=== PATIENT | male | born 1945 | race Caucasian/White ===

== ENCOUNTER 2016-11-19 06:42 | Inpatient (IN) | payer MEDICARE ==
[~2016-11-19] VITALS: Ht 188 cm; Wt 128.1 kg
--- NOTE | ~2016-11-19 | HP ---
[facility] AGE[facility] 71 Y [address] ROOM: [place] [address] LOCATION: GPCU ADMIT DATE: 11/19/2016 History & Physical DISCHARGE DATE: FAMILY PHYSICIAN: PHYSICIAN, NO ATTENDING PHYSICIAN: JEAN-PIERRE DOSHI DATE OF SERVICE: CHIEF COMPLAINT: Burning on urination and difficulty urinating. HISTORY OF PRESENT ILLNESS: A 71-year-old gentleman with a past medical history of extensive coronary artery disease, also history of paroxysmal atrial fibrillation on long-term anticoagulation without checking the INR at home, also have implantable cardiac defibrillator, secondary to ventricular tachycardia presented to the emergency department with chief complaint of burning on urination, increased frequency, difficulty initiating, and pain while urinating. The onset of symptoms have been 2 days ago, progressive in nature, and was associated with seen blood in the urine. He denied any abdominal pain, associated fever, chills, nausea, vomiting, chest pain, shortness of breath, or palpitations. On further inquiry, he denied PND, orthopnea, or leg swelling. He has not checked his INR level for over three months now. REVIEW OF SYSTEMS: All other systems reviewed were negative except what is mentioned in the HPI. PAST MEDICAL HISTORY: Significant for hypertension, coronary artery disease, paroxysmal atrial fibrillation, ventricular tachycardia status post ICD, hypothyroidism, morbid obesity, and obstructive sleep apnea. MEDICATIONS: Being reconciled right now. ALLERGIES: THE PATIENT IS ALLERGIC TO BACTRIM. FAMILY HISTORY: Family history is positive for premature coronary artery disease in both mom and dad. SOCIAL HISTORY: The patient quit smoking in 1993. Previously, he smoked three packs a day for 27 years. PATIENT'S NAME: [facility] AGE: 71 Y [address] ROOM: [address] [address] LOCATION: GPCU ADMIT DATE: 11/19/2016 History & Physical DISCHARGE DATE: FAMILY PHYSICIAN: PHYSICIAN, NO ATTENDING PHYSICIAN: JEAN-PIERRE DOSHI PHYSICAL EXAMINATION: VITAL SIGNS: Blood pressure 150/70, respiratory rate is 16, heart rate of 84, afebrile. GENERAL: In mild acute distress due to pain. HEENT: Head: Atraumatic and normocephalic. Eyes: Left eye showed conjunctiva hemorrhage. Oropharynx: Dry mucous membranes. CARDIOVASCULAR: S1 and S2. No murmurs, gallops, or rubs. LUNGS: Clear to auscultation bilaterally. ABDOMEN: Obese, soft, nontender, and nondistended. Bowel sounds are present. EXTREMITIES: No clubbing, cyanosis, or edema. PSYCH: Normal affect, mood, and speech. Cranial nerves II through XII intact. No motor or sensory deficit. MUSCULOSKELETAL: No muscle tenderness or joint swelling noted. LYMPHATICS: No lymphangitis or lymphadenopathy noted. A CAT scan was done in the emergency department of the abdomen, which showed prostate enlargement with indentation at the base of the bladder. Trabeculated bladder with thick wall appearance, could reflex cystitis. Chronic bladder outlet obstruction is also a consideration, mild bilateral hydronephrosis, and hydroureter with no calculi identified in the renal collecting systems. Extensive colonic diverticulosis. LABORATORY DATA: Lab work was significant for INR, which was undetectable on the first time and after giving 1 unit of FFP and vitamin K dropped to 5.9. Hemoglobin initially was 16, white count 10, platelets 215. BMP was impressive for a creatinine of 1.6. CT scan of the head was also done, which was negative. Urine is positive for gross hematuria. ASSESSMENT: 1. Acute cystitis. 2. Acute kidney injury, secondary to obstruction. 3. Bilateral hydronephrosis. 4. Coronary artery disease. 5. Supratherapeutic INR. 6. Paroxysmal atrial fibrillation. 7. Ventricular tachycardia, status post implantable cardioverter defibrillator. 8. Obstructive sleep apnea. 9. Morbid obesity. 10. Hypothyroidism. PLAN: Intravenous fluid resuscitation will be started. Ceftriaxone will be started as well. Ceron catheter has been placed, which has been draining dark red PATIENT'S NAME: DES GAVIRIA [facility] AGE: 71 Y [address] ROOM: [place] [address] LOCATION: GPCU ADMIT DATE: 11/19/2016 History & Physical DISCHARGE DATE: FAMILY PHYSICIAN: PHYSICIAN, NO ATTENDING PHYSICIAN: JEAN-PIERRE DOSHI blood. For CT scan findings, Urology consultation has been requested. I and O monitoring will be done. He was found to have INR, so high that we could not measure lab. Vitamin K was given IV and FFP are going. We checked the hemoglobin serially stable. CAT scan of the head is negative for any intracranial bleed. We are going to keep checking serial INR after the FFPs are done. Further management will depend on recommendation from Urology. We are going to make him n.p.o. continue the home dose of alprazolam, Coreg, and Flomax at this point. DVT prophylaxis none at this point. SCDs. Diet n.p.o. Activity as tolerated. Fall precautions. MD SENDY PETERS/oswaldo /[id number] D: [id number] T: [id number] HISTORY & PHYSICAL
--- NOTE | ~2016-11-19 | DS ---
PATIENT'S NAME: DES GAVIR[facility] AGE: 71 Y [address] ROOM: [id number] [place], [place] [address] LOCATION: GPCU ADMIT DATE: 11/19/2016 Discharge Summary DISCHARGE DATE: FAMILY PHYSICIAN: PHYSICIAN, NO ATTENDING PHYSICIAN: Jarad Rosa PRINCIPAL DIAGNOSES: 1. Hematuria. 2. Urinary obstruction, acute. 3. Acute cystitis. 4. Bilateral hydronephrosis. 5. Acute kidney injury. 6. Coronary artery disease. 7. History of ventricular tachycardia, status post implantable cardioverter- defibrillator. 8. Paroxysmal atrial fibrillation. 9. Supratherapeutic INR. HOSPITAL COURSE: A 71-year-old gentleman with a past medical history of coronary artery disease and paroxysmal atrial fibrillation, has been on Coumadin for a long time now and has not checked his INR in about 3 months, presented with difficulty urinating which has been going on for many days now. He was found to have gross hematuria. INR was checked and it was not measurable because it was so high. He was given vitamin K and FFPs and INR was brought down. Hemoglobin and hematocrit were checked serially. He was found to have NICK. A CAT scan of the abdomen was done, which showed indentation on the bladder wall as well as bilateral hydronephrosis. Urology consultation was made and a Ceron catheter was inserted and CBI was initiated. Over the course of the next 24 hours, he improved significantly with resolution of the hematuria and INR dropped down to 1.5. He was also given antibiotics in the hospital for acute cystitis and will be discharged home on oral antibiotics. I discussed with the patient regarding regularly checking INR or the option of going on to direct oral anticoagulants. He is a patient of Dr. Maxwell and he is going to follow up with Dr. Maxwell on Monday, on 11/22/2016, and they are going to discuss it. I will defer the decision to the patient and his primary care physician. I discussed the case with Dr. Ndiaye. He advised to remove the Ceron catheter and see if he is able to urinate well. If he is unable to urinate well, he needs to follow up with Dr. Ndiaye in about 4 weeks for a cystoscopy. DISCHARGE MEDICATIONS: Except Coumadin, all the home medications were restarted, which included: 1. Alprazolam 0.25 mg p.o. every day. 2. Coreg 12.5 mg p.o. twice daily. 3. Simvastatin 80 mg p.o. at bedtime. PATIENT'S NAME: DES GAVIR[facility] AGE: 71 Y [address] ROOM: [place] [address] [facility] AD[facility] DATE: 11/19/2016 Discharge Summary DISCHARGE DATE: FAMILY PHYSICIAN: PHYSICIAN, NO ATTENDING PHYSICIAN: Jarad Rosa 4. Tamsulosin 0.4 mg p.o. every day. 5. Tramadol 50 mg p.o. 3 times daily. 6. Zolpidem 12.5 mg p.o. every night at bedtime. 7. Nitrostat 0.4 mg sublingual as needed for chest pain and call emergency or 911. 8. Isosorbide mononitrate 60 mg p.o. every day. 9. Spironolactone 25 mg p.o. every day. 10. Meloxicam 7.5 mg p.o. twice daily. 11. Aspirin 81 mg p.o. every day. 12. CPAP at home. New medications include Augmentin 875/125 mg p.o. b.i.d. for 4 days. FOLLOWUP: As mentioned above. With Dr. Ndiaye in [address] Maxwell in 2 days. ACTIVITY: As tolerated. DIET: Cardiac diet. I spent 40 minutes in discharge planning of this patient with greater than 50% of the time talking to the patient explaining the reason of his bleeding, urinary obstruction, high INR, and also coordinating care with Dr. Ndiaye. MD SENDY PETERS/oswaldo /[id number] d: 11/20/16 2339 t: 11/28/16 0844, DISCHARGE SUMMARY
--- NOTE | ~2016-11-19 | CON ---
PATIENT'S NAME: DES GAVIRIA [facility] AGE: 71 Y [address] ROOM: [place] [address] LOCATION: GPCU ADMIT DATE: 11/19/2016 Consultation DISCHARGE DATE: FAMILY PHYSICIAN: PHYSICIAN, NO ATTENDING PHYSICIAN: JEAN-PIERRE DOSHI DATE OF CONSULTATION: 11/19/2016 REFERRING PHYSICIAN: Hans Ndiaye MD HISTORY: The patient is a 71-year-old male, admitted secondary to elevated INR greater than 100 with gross hematuria. The patient has been on long-term anticoagulation without checking his INRs. The patient reported difficulty voiding and dysuria for approximately 2 days prior to admission. He also noted to have gross hematuria. The patient reports a history of BPH. Currently, the patient is without complaints and has a 20-Slov[place] Ceron catheter in place. PAST MEDICAL HISTORY: Significant for coronary artery disease, paroxysmal atrial fibrillation, history of ventricular tachycardia, hypothyroidism, morbid obesity, sleep apnea, hypertension. PAST SURGICAL HISTORY: Include pacemaker placement. MEDICATIONS: See detailed history and physical. ALLERGIES: SULFA. SOCIAL HISTORY: The patient is a nonsmoker, stopping in 1993, prior to that he smoked three packs of cigarettes a day for over 25 years. There is no history of alcohol abuse. PHYSICAL EXAMINATION: GENERAL: Morbidly obese, elderly male, resting comfortably. VITAL SIGNS: Stable. Afebrile. EYES: Extraocular motion intact. Left eye reveals conjunctival hemorrhaging. EARS, NOSE, AND THROAT: No nasal ear drainage noted. LUNGS: Clear bilaterally. CARDIAC: Regular rhythm and rate. ABDOMEN: Obese, soft, nontender with normoactive bowel sounds throughout. PATIENT'S NAME: DES GAVIRIA [facility] AGE: 71 Y [address] ROOM: [place] [address] LOCATION: GPCU ADMIT DATE: 11/19/2016 Consultation DISCHARGE DATE: FAMILY PHYSICIAN: PHYSICIAN, NO ATTENDING PHYSICIAN: JEAN-PIERRE DOSHI NEUROLOGIC: Grossly intact. SKIN: Within normal limits. MUSCULOSKELETAL: Full range of motion. LYMPHATICS: No abnormal nodes palpated. : Ceron catheter in place draining bloody urine without clots. LABORATORY VALUES: Current INR is down to 2.15 after treatment with FFP and vitamin K. IMPRESSION: Gross hematuria most likely secondary to his elevated INR. This is improving. PLAN: 1. We will schedule the patient for outpatient cystoscopy for further evaluation. 2. Continue present care. MD PRADEEP BALLARD/oswaldo /[id number] d: 11/20/16 012 t: 11/29/16 0902, CONSULTATION REPORT
--- NOTE | ~2016-11-19 | ER ---
PATIENT'S NAME: DES GAVIRIA [facility] AGE: 71 Y [address] ROOM: [place] [address] LOCATION: GPCU ADMIT DATE: 11/19/2016 ER/Outpatient Report DISCHARGE DATE: FAMILY PHYSICIAN: PHYSICIAN, NO ATTENDING PHYSICIAN: JEAN-PIERRE ROSA Time of Arrival: 0642 hours. Time of Evaluation/Seen: 0655 hours. IDENTIFICATION: A 71-year-old male. CHIEF COMPLAINT: Possible UTI. HISTORY OF PRESENT ILLNESS: The patient states he has had increased frequency of urination and painful urination with hematuria. Symptoms have been since yesterday though blood was noted this morning. He is on Coumadin, and has not had his INR checked for 3 months. The patient also has a subconjunctival hemorrhage. He said his girlfriend just noted that his eye was red today. He denies any chest pain. No other bleeding episodes. No other problems or concerns. PAST MEDICAL HISTORY: ALLERGIES: NO KNOWN DRUG ALLERGIES. CURRENT MEDICATIONS: 1. Coumadin. 2. Coreg. 3. Flomax. 4. Aldactone. 5. Isosorbide. MEDICAL PROBLEMS: 1. Coronary artery disease. The patient states he has had ID x7 with cardiac stents. He has a pacemaker, AICD secondary to ventricular tachycardia and cardiomyopathy. 2. Hypothyroidism. 3. Sleep apnea. 4. Depression and anxiety. PAST SURGICAL HISTORY: Prior Surgeries: PATIENT'S NAME: DES GAVIRIA [facility] AGE: 71 Y [address] ROOM: [place] [address] LOCATION: GPCU ADMIT DATE: 11/19/2016 ER/Outpatient Report DISCHARGE DATE: FAMILY PHYSICIAN: PHYSICIAN, NO ATTENDING PHYSICIAN: JEAN-PIERRE ROSA 1. AICD pacemaker placement. 2. CABG. SOCIAL HISTORY: The patient is originally from the [facility]. He has lived in [place] for several years. He is retired. Tobacco use, denies. Alcohol use, denies. Drug use, denies. FAMILY HISTORY: Positive for coronary artery disease. REVIEW OF SYSTEMS: The patient does have back pain, but it is chronic back pain. Not anything acute today. All systems reviewed and negative other than what is noted in the HPI. PHYSICAL EXAMINATION: VITAL SIGNS: Height 62 inches, weight 130.7 kg. Blood pressure 165/101, pulse 101, respiratory rate 16, temperature 97.6, and saturations 94% on room air. GENERAL: A 71-year-old male in no acute distress. Moderate discomfort due to the dysuria. HEENT: Head; normocephalic. Ears; TMs translucent in both ears. Eyes; pupils equal and reactive to light and accommodation. Extraocular movements intact. The patient has subconjunctival hemorrhage fairly extensive on the left. Nose; mucosa pink. No lesions. Mouth; no lesions. Pharynx, benign. NECK: Supple. No lymphadenopathy. LUNGS: Clear to auscultation. Breath sounds are equal. HEART: Regular rate and rhythm. No murmur, rub, or gallop. ABDOMEN: Bowel sounds present. Soft, nondistended, nontender. No CVA tenderness. SKIN: [place], warm, and dry. No lesions or rashes noted. NEUROLOGIC: The patient is alert and oriented x4. Cranial nerves 2 through 12 grossly intact. Motor strength 5/5 throughout. Sensation is intact to light touch. LABORATORY DATA AND IMAGING STUDIES: UA; specific gravity 1.020, pH of 6.5. No white cells, packed field of red blood cells, and 2-5 epithelial cells. Culture and sensitivity are pending. Sodium 138, potassium 4.1, chloride 106, CO2 of 25, BUN 18, and creatinine 1.6. Most recent creatinine was in September of 2013, when it was 1.3. Blood sugar 131. Liver enzymes, normal. Hemoglobin 16.1, hematocrit 47.4, platelets 215,000, and white count 10.7 with a normal differential. Repeat hemoglobin at 0850 hours was 17.0 and hematocrit 48.7. INR test not performed due to elevated prothrombin time. Prothrombin time is 100, PTT 200. Head CT PATIENT'S NAME: DES GAVIRIA [facility] AGE: 71 Y [address] ROOM: [id number] [place], [place] [address] LOCATION: GPCU ADMIT DATE: 11/19/2016 ER/Outpatient Report DISCHARGE DATE: FAMILY PHYSICIAN: PHYSICIAN, NO ATTENDING PHYSICIAN: JEAN-PIERRE ROSA without contrast; no acute findings per Radiology. CT scan, stone protocol, abdomen and pelvis. Prostate enlargement with indentation of the base of the bladder. Trabeculated bladder with thick wall. Appearance could reflect cystitis and chronic bladder outlet obstruction was also differential, mild bilateral hydronephrosis and hydroureter with no calculi identified in the renal collecting system, may represent chronic obstruction or chronic infection, right nephrolithiasis, and extensive colonic diverticulosis. No evidence of diverticulitis, per Radiology. IMPRESSION AND PLAN: 1. Supratherapeutic INR with PT of 100, unable to calculate INR, and PTT of 200 with active bleeding in the form of hematuria and subconjunctival hemorrhage. The patient was given vitamin K 5 mg IV and 2 units of fresh frozen plasma have been ordered, and the patient will be admitted to the hospital per the hospitalist. 2. Hematuria probably secondary to #1. 3. Acute kidney injury with elevated creatinine. 4. Chronic bilateral hydronephrosis, no evidence of stone. 5. All other medical problems per the past medical history. The patient was admitted per the Hospitalist Service, Dr. Rosa with Urology consultation. The patient was given fentanyl for pain control in the emergency room and remained hemodynamically stable. H and H were ordered every 4 hours, repeat INR ordered after the fresh frozen plasma, and the patient was taken to the floor in stable condition. MD TYLOR FERNANDEZ/oswaldo /[id number] d: 11/20/16 1256 t: 11/25/16 0711, OUTPATIENT REPORT
[2016-11-19 07:05] LABS: BLOOD URINE 250 /UL (NEGATIVE); COLOR URINE BROWN (YELLOW); GLUCOSE URINE NEGATIVE (NEGATIVE); KETONE URINE NEGATIVE (NEGATIVE); LEUKOCYTES URINE NEGATIVE /UL (NEGATIVE); NITRITE URINE POSITIVE (NEGATIVE); PH URINE 6.5 (4.0-8.0); PROTEIN URINE 500 mg/dL (NEGATIVE); TURBIDITY URINE 4+ (CLEAR); UROBILINOGEN URINE 1 mg/dL (NORMAL)
[2016-11-19 07:13] LABS: WBC URINE NEGATIVE #/HPF (NEGATIVE)
[2016-11-19 07:14] LABS: AMORPHOUS URINE 4+ (NEGATIVE); BACTERIA URINE FEW (NEGATIVE); RBC URINE PACKED FIELD #/HPF (NEGATIVE)
[2016-11-19 07:36] LABS: BASOPHIL % 0.4 %; EOSINOPHIL # 0.1 K/uL (0.0-0.5); EOSINOPHIL % 0.5 %; HEMATOCRIT 47.4 % (37.0-53.0); HEMOGLOBIN 16.1 g/dL (11.0-16.0); IMMATURE GRANULOCYTE % 0.4 %; LYMPHOCYTE # 1.9 K/uL (0.8-4.0); MCH 29.2 pg (27.0-34.0); MCV 85.9 fl (83.0-98.0); MONOCYTE # 1.1 K/uL (0.0-1.0); MONOCYTE % 9.8 %; MPV 11.1 fl (9.4-12.4); NEUTROPHIL # (ANC) 7.6 K/uL (1.4-9.0); NEUTROPHIL % 70.9 %; NRBC % 0 /100WBC (0-0.00); PLATELET COUNT 215 K/uL (150-450); RBC 5.52 M/uL (3.50-5.50); WBC 10.7 K/uL (4.0-11.0)
[2016-11-19 07:52] LABS: ALBUMIN 4.1 gm/dL (3.5-5.0); ANION GAP 11.1 (10.0-19.0); CALCIUM 8.5 mg/dL (8.5-10.5); CREATININE 1.6 mg/dL (0.6-1.3); POTASSIUM 4.1 mMol/L (3.7-5.1); TOTAL PROTEIN 7.6 g/dL (6.0-8.4)
[2016-11-19 08:07] LABS: PTT 200 SECONDS (25-32)
[2016-11-19 08:55] LABS: HEMATOCRIT 48.7 % (37.0-53.0)
[2016-11-19] MEDS ORDERED: NITROSTAT0.4 MG SL (10:28)
[2016-11-19] MEDS ORDERED: AMBIEN CR12.5 MG PO (10:28)
[2016-11-19] MEDS ORDERED: COREG12.5 MG PO (10:30)
[2016-11-19] MEDS ORDERED: ZOCOR80 MG PO (10:31)
[2016-11-19] MEDS ORDERED: IMDUR60 MG PO (10:33)
[2016-11-19] MEDS ORDERED: XANAX0.25 MG PO (10:33)
[2016-11-19] MEDS ORDERED: ALDACTONE25 MG PO (10:33)
[2016-11-19] MEDS ORDERED: FLOMAX0.4 MG PO (10:34)
[2016-11-19] MEDS ORDERED: ULTRAM50 MG PO (10:35)
[2016-11-19] MEDS ORDERED: CHILDREN'S CHEW81 MG PO (10:36)
[2016-11-19] MEDS ORDERED: CPAP INH (10:36)
[2016-11-19 11:39] LABS: HEMATOCRIT 46.3 % (37.0-53.0)
[2016-11-19 11:59] LABS: PROTIME 63.2 SECONDS (9.8-11.4)
[2016-11-19 12:00] LABS: INR - (THERAPEUTIC) 5.91 (0.92-1.07)
[2016-11-19 15:36] LABS: INR - (THERAPEUTIC) 2.15 (0.92-1.07); PROTIME 22.8 SECONDS (9.8-11.4)
[2016-11-19 23:37] LABS: HEMATOCRIT 40.9 % (37.0-53.0); HEMOGLOBIN 13.9 g/dL (11.0-16.0)
[2016-11-20 06:45] LABS: BASOPHIL % 0.4 %; EOSINOPHIL # 0.1 K/uL (0.0-0.5); EOSINOPHIL % 1.8 %; HEMOGLOBIN 14.3 g/dL (11.0-16.0); IMMATURE GRANULOCYTE % 0.3 %; LYMPHOCYTE # 1.8 K/uL (0.8-4.0); LYMPHOCYTE % 26.7 %; MCH 29.3 pg (27.0-34.0); MCHC 33.3 gm/dL (32.0-36.5); MCV 88.1 fl (83.0-98.0); MPV 11.2 fl (9.4-12.4); NEUTROPHIL # (ANC) 3.9 K/uL (1.4-9.0); NEUTROPHIL % 56.8 %; NRBC % 0 /100WBC (0-0.00); PLATELET COUNT 159 K/uL (150-450); RBC 4.88 M/uL (3.50-5.50); RDW-CV 13.1 % (11.9-14.6); WBC 6.8 K/uL (4.0-11.0)
[2016-11-20 06:55] LABS: INR - (THERAPEUTIC) 1.54 (0.92-1.07); PROTIME 16.2 SECONDS (9.8-11.4)
[2016-11-20 06:58] LABS: ANION GAP 8.7 (10.0-19.0); CALCIUM 8.3 mg/dL (8.5-10.5); CREATININE 1.4 mg/dL (0.6-1.3); POTASSIUM 3.7 mMol/L (3.7-5.1)
[2016-11-20 11:44] LABS: HEMATOCRIT 40.9 % (37.0-53.0); HEMOGLOBIN 13.9 g/dL (11.0-16.0)
[2016-11-20] MEDS ORDERED: AUGMENTIN 875-1 EACH PO (13:57)
[2016-11-20 23:32] LABS: HEMATOCRIT 38.3 % (37.0-53.0); HEMOGLOBIN 13.2 g/dL (11.0-16.0)
[2016-11-21 04:02] LABS: BASOPHIL % 0.5 %; EOSINOPHIL # 0.2 K/uL (0.0-0.5); EOSINOPHIL % 3.1 %; HEMATOCRIT 37.5 % (37.0-53.0); HEMOGLOBIN 12.8 g/dL (11.0-16.0); IMMATURE GRANULOCYTE % 0.3 %; LYMPHOCYTE # 2.1 K/uL (0.8-4.0); LYMPHOCYTE % 36.3 %; MCH 29.7 pg (27.0-34.0); MCHC 34.1 gm/dL (32.0-36.5); MONOCYTE # 0.7 K/uL (0.0-1.0); MONOCYTE % 12.8 %; MPV 11.4 fl (9.4-12.4); NEUTROPHIL # (ANC) 2.7 K/uL (1.4-9.0); NRBC % 0 /100WBC (0-0.00); PLATELET COUNT 166 K/uL (150-450); RBC 4.31 M/uL (3.50-5.50); RDW-CV 12.8 % (11.9-14.6); WBC 5.8 K/uL (4.0-11.0)
[2016-11-21 04:19] LABS: ANION GAP 10.6 (10.0-19.0); CALCIUM 8.2 mg/dL (8.5-10.5); CREATININE 1.3 mg/dL (0.6-1.3); POTASSIUM 3.6 mMol/L (3.7-5.1)
[2016-12-01] MEDS ORDERED: COUMADIN ** IA5 MG PO (12:29)
== END 2016-11-21 15:00 | disposition disaster alternative care site (69) | DRG 690 ==
LOC: GMED 06:42 → GPCU 10:11
PROVIDERS: Family Medicine; ADMIT Internal Medicine
PROC: 30233K1 Transfusion of Nonautologous Frozen Plasma into Peripheral Vein, Percutaneous Approach (ICD-10-PCS; principal; 2016-11-19)
DX: N30.01 Acute cystitis with hematuria (principal); N17.9 Acute kidney failure, unspecified; I47.2 Ventricular tachycardia; N13.30 Unspecified hydronephrosis; N40.1 Benign prostatic hyperplasia with lower urinary tract symptoms; N13.8 Other obstructive and reflux uropathy; I10 Essential (primary) hypertension; I48.0 Paroxysmal atrial fibrillation; R33.9 Retention of urine, unspecified; E03.9 Hypothyroidism, unspecified; R79.1 Abnormal coagulation profile; I25.10 Atherosclerotic heart disease of native coronary artery without angina pectoris; G47.33 Obstructive sleep apnea (adult) (pediatric); E66.01 Morbid (severe) obesity due to excess calories; Z68.36 Body mass index [BMI] 36.0-36.9, adult; I25.2 Old myocardial infarction; Z95.1 Presence of aortocoronary bypass graft; Z95.810 Presence of automatic (implantable) cardiac defibrillator; H11.32 Conjunctival hemorrhage, left eye; K57.30 Diverticulosis of large intestine without perforation or abscess without bleeding; Z95.5 Presence of coronary angioplasty implant and graft; Z88.2 Allergy status to sulfonamides; Z87.891 Personal history of nicotine dependence; Z82.49 Family history of ischemic heart disease and other diseases of the circulatory system; Z79.82 Long term (current) use of aspirin
CPT/HCPCS: J0171; J0696; J1200; J1885; J2270; J3010; J7030; J7040; J7050; J7060; J7120; P9017

== ENCOUNTER 2016-11-21 19:10 | Emergency (ER) | payer MEDICARE ==
--- NOTE | ~2016-11-21 | ER ---
PATIENT'S NAME: DES GAVIRIA [facility] AGE: 71 Y [address] ROOM: [place] [address] LOCATION: [facility] ADMIT DATE: 11/21/2016 ER/Outpatient Report DISCHARGE DATE: 11/21/2016 FAMILY PHYSICIAN: PHYSICIAN, NO ATTENDING PHYSICIAN: Petr Anderson Time of Arrival: 1909 hours. Time of Evaluation: 1909 hours. CHIEF COMPLAINT: Ceron catheter dysfunction. HISTORY OF PRESENT ILLNESS: The patient is a 71-year-old male who presents to the emergency department today with a chief complaint of Ceron catheter dysfunction. He reports that he was released from the hospital today. He was attempting to go to the bathroom when his catheter tubing disconnected. He reports that there was blood everywhere. The patient does have a catheter secondary to hematuria. He already does have an appointment to follow up with Dr. Ndiaye on . He denies any other associated symptoms at this time. PAST MEDICAL HISTORY: Coronary artery disease, hypothyroid, obstructive sleep apnea, depression, and anxiety. PAST SURGICAL HISTORY: AICD, pacemaker placement, CABG, and stents. SOCIAL HISTORY: The patient is originally from [facility]. He lives in [place] for several years. Denies any tobacco, alcohol, or illicit drug use. ALLERGIES: NO KNOWN DRUG ALLERGIES. MEDICATIONS: Please see list. PRIMARY CARE DOCTOR: Dr. Maxwell. REVIEW OF SYSTEMS: All systems are reviewed by myself and are negative with the exception of those discussed in the HPI and past medical history. PATIENT'S NAME: DES GAVIRIA [facility] AGE: 71 Y [address] ROOM: [place] [address] LOCATION: [facility] ADMIT DATE: 11/21/2016 ER/Outpatient Report DISCHARGE DATE: 11/21/2016 FAMILY PHYSICIAN: PHYSICIAN, NO ATTENDING PHYSICIAN: Petr Anderson PHYSICAL EXAMINATION: VITAL SIGNS: Blood pressure 180/94, pulse 91, respiratory rate 18, temperature 99.6, oxygen saturation 97% on room air. GENERAL: The patient is a 71-year-old male, who appears stated age, in no acute distress. HEENT: Normocephalic, atraumatic. CARDIOVASCULAR: Regular rate and rhythm. LUNGS: Clear to auscultation bilaterally. ABDOMEN: Soft, nontender, and nondistended. No rebound, rigidity, or guarding. : The patient has a Ceron in place. There is no bag attached. SKIN: Warm and dry. LABORATORY DATA AND X-RAYS: A bedside ultrasound was performed by myself. It does reveal a Ceron catheter balloon within the bladder. IMPRESSION: 1. Ceron catheter dysfunction. 2. Initial visit. EMERGENCY DEPARTMENT COURSE: The patient was brought back to the examination room. Seen and evaluated by myself. A bedside ultrasound was performed as described above. A bag is attached to the Ceron catheter. I have discussed continuing as planned followup. The patient is agreeable. He is without further questions. DISPOSITION: The patient discharged home in good condition. DO RACHEL KIRK/modl /[id number] d: 11/21/162057 t: 11/24/16 0623, OUTPATIENT REPORT
[~2016-11-21 19:10] MED LIST: ALDACTONE25 MG PO; AMBIEN CR12.5 MG PO; AUGMENTIN 875-1 EACH PO; CHILDREN'S CHEW81 MG PO; COREG12.5 MG PO; CPAP INH; FLOMAX0.4 MG PO; IMDUR60 MG PO; NITROSTAT0.4 MG SL; ULTRAM50 MG PO; XANAX0.25 MG PO; ZOCOR80 MG PO
[2016-12-01] MEDS ORDERED: COUMADIN ** IA5 MG PO (12:29)
== END 2016-11-21 19:45 | disposition disaster alternative care site (69) ==
LOC: GMED 19:10
DX: T83.091A Other mechanical complication of indwelling urethral catheter, initial encounter (principal); I10 Essential (primary) hypertension; I25.10 Atherosclerotic heart disease of native coronary artery without angina pectoris; E03.9 Hypothyroidism, unspecified; F41.9 Anxiety disorder, unspecified; F32.9 Major depressive disorder, single episode, unspecified; Z79.2 Long term (current) use of antibiotics; Z79.82 Long term (current) use of aspirin; Z79.1 Long term (current) use of non-steroidal anti-inflammatories (NSAID); Z79.891 Long term (current) use of opiate analgesic; Z79.899 Other long term (current) drug therapy; Z88.2 Allergy status to sulfonamides; Z95.1 Presence of aortocoronary bypass graft; Z95.810 Presence of automatic (implantable) cardiac defibrillator; Z95.0 Presence of cardiac pacemaker

== ENCOUNTER 2016-11-29 18:20 | Emergency (ER) | payer MEDICARE ==
--- NOTE | ~2016-11-29 | ER ---
PATIENT'S NAME: [facility] AGE: 71 Y [address] ROOM: [place] [address] LOCATION: [facility] ADMIT DATE: 11/29/2016 ER/Outpatient Report DISCHARGE DATE: 11/29/2016 FAMILY PHYSICIAN: Dewey Maxwell MD ATTENDING PHYSICIAN: Petr Anderson TIME OF ARRIVAL: 1820. TIME OF EVALUATION: 184. CHIEF COMPLAINT: Urinary retention. HISTORY OF PRESENT ILLNESS: The patient is a 71-year-old male who presented to the Emergency Department today with a chief complaint of urinary retention. He reports that he had the urinary catheter removed today. He tried to go to the bathroom multiple times, and has not been able to over the past hour and a half. He does report that he is supposed to undergo a TURP next week. He reports that pain maximum was 8 to 9/10 in severity. It is currently 0/10 in severity. He denies any fevers or chills. No nausea or vomiting. No diarrhea or constipation. No blood in his urine. PAST MEDICAL HISTORY: 1. BPH. 2. Heart disease. 3. Hypertension. 4. Atrial fibrillation. 5. Dyslipidemia. 6. Sleep apnea. PAST SURGICAL HISTORY: 1. ICD. 2. Pacemaker. 3. Stents. 4. CABG. SOCIAL HISTORY: The patient denies any tobacco, alcohol, or illicit drug use. ALLERGIES: SEE LIST. [facility]: 71 Y [address] ROOM: [place] [address] LOCATION: [facility] ADMIT DATE: 11/29/2016 ER/Outpatient Report DISCHARGE DATE: 11/29/2016 FAMILY PHYSICIAN: Dewey Maxwell MD ATTENDING PHYSICIAN: Petr Anderson MEDICATIONS: See list. PRIMARY CARE DOCTOR: Dr. Maxwell UROLOGIST: Dr. Ndiaye REVIEW OF SYSTEMS: All systems are reviewed by myself and are negative, with the exception of those discussed in HPI and past medical history. PHYSICAL EXAMINATION: VITAL SIGNS: Weight is 130.6 kg. Blood pressure was 116/68, pulse was 102, respiratory rate was 16, temperature was 98.6, and oxygen saturation was 91% on room air. GENERAL: The patient is a 71-year-old male, who appears stated age, in mild acute distress. HEENT: Normocephalic and atraumatic. Pupils are equal, round, and reactive to light. Extraocular motions are intact. Nares are patent bilaterally. Oropharynx is clear. NECK: Supple. There is no nuchal rigidity. CARDIOVASCULAR: Regular rate and rhythm. No murmurs, rubs, or gallops. LUNGS: Clear to auscultation bilaterally. No wheezes, rales, or rhonchi. ABDOMEN: Soft, nontender, and nondistended. No rebound, rigidity, or guarding. MUSCULOSKELETAL: The patient moves all 4 extremities. SKIN: Warm and dry. No rashes or lesions are noted. LABORATORY DATA AND X-RAYS: Bedside ultrasound was performed by myself. It does show an enlarged bladder. IMPRESSION: 1. Urinary retention. 2. Initial visit. EMERGENCY DEPARTMENT COURSE: The patient was brought back to the Examination Room. Seen and evaluated by myself. A Ceron catheter was placed. Urinalysis was sent down for evaluation. There was no evidence of infection. I have asked that the patient follow up with Dr. Ndiaye in 1 to 2 days for re-evaluation. I have discussed the [id number] instructions including worsening symptoms or any other concerns, return to the Emergency Department as soon as possible. The patient was agreeable without further questions at this time. PATIENT'S NAME: DES GAVIRIA [facility] AGE: 71 Y [address] ROOM: [place] [address] LOCATION: [facility] ADMIT DATE: 11/29/2016 ER/Outpatient Report DISCHARGE DATE: 11/29/2016 FAMILY PHYSICIAN: Dewey Maxwell MD ATTENDING PHYSICIAN: Petr Anderson DISPOSITION: The patient was discharged home in good condition. DO RACHEL KIRK/oswaldo /[id number] d: 11/30/16201 t: 11/30/161911, OUTPATIENT REPORT
[2016-11-29 19:41] LABS: BILIRUBIN URINE NEGATIVE (NEGATIVE); BLOOD URINE 250 /UL (NEGATIVE); COLOR URINE YELLOW (YELLOW); GLUCOSE URINE NEGATIVE (NEGATIVE); KETONE URINE NEGATIVE (NEGATIVE); LEUKOCYTES URINE 25 /UL (NEGATIVE); NITRITE URINE NEGATIVE (NEGATIVE); PROTEIN URINE 15 mg/dL (NEGATIVE); UROBILINOGEN URINE NORMAL (NORMAL)
[2016-11-29 19:43] LABS: TURBIDITY URINE 1+ (CLEAR)
[2016-11-29 20:01] LABS: AMORPHOUS URINE 2+ (NEGATIVE); BACTERIA URINE RARE (NEGATIVE); EPITHELIAL URINE 0-2 #/HPF (NEGATIVE); MUCUS URINE 1+ (NEGATIVE)
[2016-12-01] MEDS ORDERED: COUMADIN ** IA5 MG PO (12:29)
== END 2016-11-29 20:14 | disposition disaster alternative care site (69) ==
LOC: GMED 18:20
PROVIDERS: Emergency Medicine
PROC: 0T9B30Z Drainage of Bladder with Drainage Device, Percutaneous Approach (ICD-10-PCS; principal; 2016-11-29)
DX: R33.9 Retention of urine, unspecified (principal); I10 Essential (primary) hypertension; I48.91 Unspecified atrial fibrillation; E03.9 Hypothyroidism, unspecified; E78.5 Hyperlipidemia, unspecified; N40.0 Benign prostatic hyperplasia without lower urinary tract symptoms; Z79.82 Long term (current) use of aspirin; Z79.891 Long term (current) use of opiate analgesic; Z79.899 Other long term (current) drug therapy; Z88.2 Allergy status to sulfonamides; Z95.0 Presence of cardiac pacemaker; Z95.1 Presence of aortocoronary bypass graft

== ENCOUNTER 2016-12-09 11:53 | Day surgery (SDC) | payer MEDICARE ==
[~2016-12-09] VITALS: Ht 188 cm; Wt 130.0 kg
--- NOTE | ~2016-12-09 | OR ---
PATIENT'S NAME: [facility] AGE: 71 Y [address] ROOM: [place] [address] [place] [facility] [place]: 12/09/[place] OR/Procedure Report DISCHARGE DATE: FAMILY PHYSICIAN: Dewey Maxwell MD ATTENDING PHYSICIAN: Hans Ndiaye SURGEON: Hans Ndiaye MD [employer] ENGINEER: DATE OF PROCEDURE: 12/09/2016 PREOPERATIVE DIAGNOSES: 1. Benign prostatic hypertrophy with lower urinary tract symptoms. 2. Moderate urinary retention. POSTOPERATIVE DIAGNOSES: 1. Benign prostatic hypertrophy with lower urinary tract symptoms. 2. Moderate urinary retention. PROCEDURES PERFORMED: Cystoscopy, and transurethral resection of prostate. ANESTHESIA: General. COMPLICATIONS: None. INDICATIONS FOR PROCEDURE: The patient is a 71-year-old male with severe BPH and median lobe enlargement noted on cystoscopy and moderate urinary retention. DETAILS OF PROCEDURE: After informed consent was obtained, the patient was taken to the operating room. A general anesthetic was applied. He was placed in the dorsal lithotomy position. The groin area was prepped and draped in normal sterile fashion. The cystoscope was introduced in urethra and bladder without difficulty. Again the patient was noted to have a very large median lobe and elongated prostatic urethra. The resectoscope sheath was introduced followed by resectoscope. I first resected the median lobe down to the floor of the prostate and crossing fibers. I then resected down towards the verumontanum. I then resected the lateral lobes. I irrigated the chips out and continued resection. Towards the end of the case, the patient was noted to have significant venous bleeding from the resection which was fulgurated but because of this, it was decided to discontinue the procedure. At the end of the procedure, the patient had a good voiding channel. The patient tolerated the procedure well and transferred to the recovery room in good condition. PATIENT'S NAME: DES [facility]AV[facility] AGE: 71 Y [address] ROOM: [place] [address] [place] [facility] [place]: 12/09/2016 OR/Procedure Report DISCHARGE DATE: FAMILY PHYSICIAN: Dewey Maxwell MD ATTENDING PHYSICIAN: Hans Ndiaye MD PRADEEP BALLARD/oswaldo /[id number] CC: Dewey Maxwell MD d: 12/09/16 1920 t: 12/21/16 1157, OPERATIVE SUMMARY
[~2016-12-09 11:53] MED LIST changes: +COUMADIN ** IA5 MG PO
[2016-12-09 12:21] LABS: BASOPHIL % 0.4 %; EOSINOPHIL # 0.2 K/uL (0.0-0.5); EOSINOPHIL % 2.3 %; HEMATOCRIT 42.3 % (37.0-53.0); HEMOGLOBIN 14.3 g/dL (11.0-16.0); IMMATURE GRANULOCYTE % 0.4 %; LYMPHOCYTE # 2.3 K/uL (0.8-4.0); LYMPHOCYTE % 29.2 %; MCH 29.4 pg (27.0-34.0); MCHC 33.8 gm/dL (32.0-36.5); MCV 86.9 fl (83.0-98.0); MONOCYTE # 0.7 K/uL (0.0-1.0); MONOCYTE % 9.3 %; MPV 11.2 fl (9.4-12.4); NEUTROPHIL # (ANC) 4.6 K/uL (1.4-9.0); NEUTROPHIL % 58.4 %; NRBC % 0 /100WBC (0-0.00); PLATELET COUNT 192 K/uL (150-450); RBC 4.87 M/uL (3.50-5.50); RDW-CV 12.7 % (11.9-14.6); WBC 7.8 K/uL (4.0-11.0)
[2016-12-09 12:35] LABS: INR - (THERAPEUTIC) 1.02 (0.92-1.07); PROTIME 10.7 SECONDS (9.8-11.4); PTT 27 SECONDS (25-32)
[2016-12-09 12:42] LABS: ALBUMIN 3.5 gm/dL (3.5-5.0); ANION GAP 10.2 (10.0-19.0); CALCIUM 8.6 mg/dL (8.5-10.5); CREATININE 1.4 mg/dL (0.6-1.3); POTASSIUM 4.2 mMol/L (3.7-5.1); TOTAL BILIRUBIN 0.9 mg/dL (0.0-1.5); TOTAL PROTEIN 7.1 g/dL (6.0-8.4)
--- NOTE | 2016-12-10 04:12 | NUR ---
Pt. post surgery for TURP with CBI at a slow rate with some small clots. Urine is light pink/pale yellow. Pt. alert and oriented. VSS. CPAP at night otherwise RA. IV to R) forearm - saline locked. Tolerating fluids and food. Pt. does ask many questions related to procedure. PRN resteril given with no relief. Pt. did not sleep at all. PRN norco given x2. Last dose at 0045. Pt. is bedrest. Cooperative with cares.
[2016-12-10] MEDS ORDERED: PROSCAR5 MG PO (12:03)
[2016-12-10] MEDS ORDERED: NEOSPORIN ANT14.2 GM TOP (12:05)
[2016-12-10] MEDS ORDERED: NORCO 10-325 T1 EACH PO (12:08)
[2016-12-10] MEDS ORDERED: LEVAQUIN 250 M250 MG PO (12:10)
[2016-12-10] MEDS ORDERED: COUMADIN ** IA5 MG PO (12:12)
[2016-12-10] MEDS ORDERED: MOBIC7.5 MG PO (12:13)
--- NOTE | 2016-12-10 13:00 | NUR ---
Significant Event: Patient vitals stable, on room air, but does wear CPAP at night. Dr. Ndiaye up and said if patient ambulates and urine stays clear that patient can be dismissed. Dr. Ndiaye did fill out dismissal papers. Patient's significant other up to see patient. Patient's urine is a pink/light peach color with some red sediment noted. Patient ambulated with [employer] and tolerated well. Urine remained unchanged. When nurse said something about patient's significant other being patient's ride, patient's significant other stated that she couldn't see well enough to drive. When questioned further, patient stated that he had his car here and that he was planning on driving himself home. I told him I would ask Dr. Ndiaye on that as he stated that he had not discussed this with Dr. Ndiaye prior to having his surgery. Dr. Ndiaye called and stated that no the patient could not drive himself home. Relayed information to patient and patient said he would call a friend of his. Dismissal orders processed and reviewed with patient. Significant other able to change patient from night drainage bag over to leg bag. Patient and significant other both stated that she would be the one that would be helping patient care for the catheter. Nurse did send education regarding catheter half-way with patient even though patient had gone home with a catheter before. Patient and significant other verbalized understanding of instructions and patient signed the dismissal paperwork. Patient taken in a wheel chair by [employer]IST down to the front doors for dismissal when ride got here. Shavon, patient's ride was going to drive patient home.
== END 2016-12-10 13:07 | disposition disaster alternative care site (69) ==
LOC: GSDC 11:53 → GMSU 11:53 → GPOC 12:00 → GMSU 16:57 → GSDC 12-10 13:07
PROVIDERS: Urology
PROC: 0VT08ZZ Resection of Prostate, Via Natural or Artificial Opening Endoscopic (ICD-10-PCS; principal; 2016-12-09)
DX: N40.1 Benign prostatic hyperplasia with lower urinary tract symptoms (principal); R33.8 Other retention of urine; I48.2 Chronic atrial fibrillation; I13.0 Hypertensive heart and chronic kidney disease with heart failure and stage 1 through stage 4 chronic kidney disease, or unspecified chronic kidney disease; I50.9 Heart failure, unspecified; N18.3 Chronic kidney disease, stage 3 (moderate); E11.22 Type 2 diabetes mellitus with diabetic chronic kidney disease; I25.10 Atherosclerotic heart disease of native coronary artery without angina pectoris; G47.33 Obstructive sleep apnea (adult) (pediatric); E78.5 Hyperlipidemia, unspecified; F32.9 Major depressive disorder, single episode, unspecified; I47.2 Ventricular tachycardia; I42.9 Cardiomyopathy, unspecified; Z88.1 Allergy status to other antibiotic agents; Z88.2 Allergy status to sulfonamides; Z88.8 Allergy status to other drugs, medicaments and biological substances; Z95.5 Presence of coronary angioplasty implant and graft; Z79.01 Long term (current) use of anticoagulants; Z79.899 Other long term (current) drug therapy; Z98.890 Other specified postprocedural states
CPT/HCPCS: J1956; J2001; J2250; J2405; J3010; J7030